=== PATIENT | female | born 1945 | race Caucasian/White ===

== ENCOUNTER → 2023-11-07 11:03 | Outpatient (REF) | payer MEDICARE, BC, SELFPAY | LOC: WDC 11:03 | PROVIDERS: ATTENDING PHYSICIAN Family Medicine | DX: Z12.31 Encounter for screening mammogram for malignant neoplasm of breast (principal) | CPT/HCPCS: 77063; 77067 ==

== ENCOUNTER → 2023-11-19 09:20 | Outpatient (REF) | payer MEDICARE, BC, SELFPAY | LOC: WDC 09:20 | PROVIDERS: ATTENDING PHYSICIAN Family Medicine | DX: R92.8 Other abnormal and inconclusive findings on diagnostic imaging of breast (principal) | CPT/HCPCS: 76642 ==

== ENCOUNTER → 2023-11-24 07:44 | Outpatient (REF) | payer MEDICARE, BC, SELFPAY ==
--- NOTE | 2023-11-24 14:48 | OID.BR.INTR ---
[facility] Breast Navigator - Initial
- -
Date of Contact: 11/24/23
Met with patient. Patient given written information on navigator services and support services available at [facility]. Will follow up as needed per protocol.
== END ==
LOC: WDC 07:44
PROVIDERS: ATTENDING PHYSICIAN Family Medicine
DX: N63.10 Unspecified lump in the right breast, unspecified quadrant (principal); N63.11 Unspecified lump in the right breast, upper outer quadrant
CPT/HCPCS: 88305; 19083; 77065; A4648

== ENCOUNTER → 2024-04-03 08:20 | Outpatient (REF) | payer MEDICARE, BC, SELFPAY ==
[2024-04-03 10:23] LABS: % Basophils 0.6 % (0-2); % Eosinophils 3.5 % (0-6); % Immature Granulocytes 0.3 % (0-0.5); % Lymphocytes 20.6 % (20.5-51.1); % Monocytes 7.9 % (1.7-9.3); % Neutrophils 67.1 % (42.2-75.2); Absolute Eosinophils 0.3 10^3/uL (0-0.7); Absolute Lymphocytes 1.5 10^3/uL (1.2-3.4); Absolute Monocytes 0.6 10^3/uL (0.1-0.6); Absolute Neutrophils 4.8 10^3/uL (1.4-6.5); Hematocrit 40.9 % (37.0-47.0); Hemoglobin 13.6 g/dL (12.0-16.0); Mean Corp Hgb Conc. 33.3 g/dL (33.0-37.0); Mean Corpuscular Hgb 30.8 pg (27.0-31.0); Mean Corpuscular Volume 92.5 fL (81.0-99.0); Mean Platelet Volume 10.1 fL (7.4-10.4); Nucleated Red Blood Cells % 0 %; Platelet Count 322 10^3/uL (130-400); Red Blood Cell Count 4.42 10^6/uL (4.20-5.40); White Blood Cell Count 7.1 10^3/uL (4.8-10.8)
[2024-04-03 10:48] LABS: ALT (SGPT) < 10 U/L (0-35); AST (SGOT) 19 U/L (14-36); Albumin 4.5 g/dl (3.5-5.0); Alkaline Phosphatase 78 U/L (38-126); Blood Urea Nitrogen 13 mg/dl (7-17); Calcium 9.8 mg/dl (8.4-10.2); Carbon Dioxide 23 mmol/L (22-30); Chloride 105 mmol/L (98-107); Glucose 115 mg/dl (70-99); HDL Cholesterol 73 mg/dl; LDL Cholesterol, Calculated 63 mg/dl; Potassium 4.4 mmol/L (3.5-5.1); Sodium 139 mmol/L (135-145); Total Bilirubin 0.6 mg/dl (0.2-1.3); Total Cholesterol 163 mg/dl (50-199); Total Protein 7.1 g/dl (6.3-8.2); Triglyceride 135 mg/dl (10-149); Very Low Density Lipoprotein 27 mg/dl (0-30); eGFR > 60.00
[2024-04-03 11:03] LABS: Microalbumin, Random Urine 1.2 mg/dl (0.6-1.7); Microalbumin/creatinine Ratio 4.5 mg/g
[2024-04-03 11:18] LABS: TSH 2.06 uIU/ml (0.47-4.68)
[2024-04-03 15:05] LABS: Glycohemoglobin (HgbA1c) 6.9 % (4.0-5.6)
== END ==
LOC: REG 08:20
PROVIDERS: ATTENDING PHYSICIAN Family Medicine
DX: E11.9 Type 2 diabetes mellitus without complications (principal); I10 Essential (primary) hypertension; E78.2 Mixed hyperlipidemia
CPT/HCPCS: 36415; 80053; 80061; 82043; 82570; 83036; 84443; 85025

== ENCOUNTER 2024-04-08 07:25 | Inpatient (IN) | payer MEDICARE, BC, SELFPAY ==
[2024-04-07] VITALS (9 sets, daily range): BP systolic 110–166; BP diastolic 60–115; BMI 22.1
[2024-04-07 09:50] LABS: Glucose - Point of Care 139 mg/dl (70-99)
--- NOTE | 2024-04-07 09:54 | ED.CVA ---
History of Present Illness
General
Chief Complaint: CVA/TIA Symptoms
Source: patient
Exam Limitations: none
Time Seen by Provider: 04/07/24 09:44
Onset of Stroke Symptoms
Onset of symptoms known: No
Time pt last seen normal is known: Yes
Date last time pt seen normal: 04/06/24
History of Present Illness
History of Present Illness:
See MDM
Past History
Past History
ED Past Medical History: None
ED Past Surgical History: None
Social History
Tobacco: Non-smoker
Phy Exam
Physical Exam
Physical Exam:
See MDM
NIH Stroke Score
Level of Consciousness: 0 - Alert
LOC questions: 0-Answers both correctly
LOC Commands: 0-Performs both correctly
Best Gaze: 0-Normal
Visual Stephens: 0=Normal, no visual loss
Facial palsy: 0=Normal, symmetrical
Motor - Right Arm: 0=No drift 10 seconds
Motor - Left Arm: 0=No drift 10 seconds
Motor - Right Le-No drift 5 seconds
Motor - Left Le-No drift 5 seconds
Limb Ataxia: 0-Absent
Sensation: 0-Normal
Best Language: 1-Mild aphasia
Dysarthria: 0-Normal
Extinction and Inattention: 0-No abnormality
Total Score:: 1
Course
Orders/Labs/Results
Orders:
Orders
04/07/24 09:50
Electrocardiogram (*1) Urgent
Reason for Study: TIA/Stroke
EKG- Treatment ONCE
04/07/24 09:53
CT Head & Neck Angio W/wo IV Urgent
Comment:
Reason For Exam: mild aphasia. Last normal 12 hr ago
NEUROLOGY CONSULT Urgent
Consulting Provider: Deni Ragsdale
Was physician already notified: Yes
Cardiac Monitoring- Treatment ONCE
EKG- Treatment ONCE
04/07/24 09:59
Complete Blood Count/With Diff Urgent
Comprehensive Metabolic Panel Urgent
PTT Urgent
Prothrombin Time Urgent
Troponin I Urgent
04/07/24 11:35
Aspirin Chewable [Low Strength Aspirin] 324 mg PO NOW STA
Clopidogrel Bisulfate [Plavix] 300 mg PO NOW STA
Abnormal Lab Results
04/07/24 04/07/24
09:49 09:59
Glucose 152 H mg/dl
(70-99)
POC Glucose 139 H mg/dl
(70-99)
04/07/24 09:59
04/07/24 09:59
Vital Signs
Initial and Last Documented VS:
Initial Vital Signs
Temp Pulse Resp BP Pulse Ox
97.6 F 84 18 166/115 96
04/07/24 09:40 04/07/24 09:40 04/07/24 09:40 04/07/24 09:40 04/07/24 09:40
Last Documented Vital Signs
Temp Pulse Resp BP Pulse Ox
97.6 F 63 13 143/77 95
04/07/24 09:40 04/07/24 11:00 04/07/24 11:00 04/07/24 11:00 04/07/24 11:00
MDM/Problems Addressed
Differential Diagnosis Includes:
HPI and MDM Narrative:
78-year-old female presenting for evaluation for possible stroke. Patient had a routine follow-up with her primary care doctor today and she was noted to be mildly aphasic. She was sent in for evaluation. Patient has had a stroke in the past.
Patient woke up around 6 AM. There is no one else in the house to talk to so she was not conversing. She saw a neighbor at 6:30 AM. When she started talking, she noted that she had mild word finding issues. The last time she was normal was 6:30
PM last night when she was talking to her sister. It is not certain when her symptoms actually started. Regardless, patient has an NIH score of 1 for mild aphasia. She is not a TNK candidate. Neurology made aware and will obtain CT and CT
angiogram
Physical exam
General: Well appearing and non-toxic
HEENT: protecting airway
Neck: appears supple
CV: No evidence of cyanosis. Regular rate and rhythm
Resp: No accessory muscle use. Lungs clear
Abd: Non-distended
Extremities: No deformities
Neuro: alert. Very mild word finding issues. No other focal deficits noted
Psych: Normal affect
Skin: Intact
Problems Addressed including Acute and Chronic Conditions affecting care:
1. Stroke like symptoms
Acuity: acute
Prognosis: stable
Details: Will obtain CT angiogram. Neurology will eval. Given the uncertain timing with low NIH stroke scale, she is not a TNK candidate
Updates
CT angio negative for significant blockages. Will give aspirin Plavix and admit
Differential Diagnosis (but not limited to): Stroke, intracranial hemorrhage
Testing considered: CT perfusion
Drug therapy (if applicable): OTC meds, please see d/c instruction regarding Rx drugs
Amount and/or Complexity of Data Reviewed
Clinical info obtained from: Patient
External data reviewed: N/A
Labs I independently reviewed (but not limited to): Electrolytes within normal limits
Radiology: The CT scan was personally and independently reviewed. In addition, official CT report reviewed.
Pulse Ox: not hypoxic
EKG independently reviewed: Sinus rhythm, normal axis, no STEMI
[employer]: Sinus rhythm
Critical Care: N/A
Risk of Complication:
Social Determinants of health: Good social support
Discussed with other providers: Neurology, hospitalist
Escalation of Care includes Admit/Obs: Given the aphasia and strokelike symptoms, will admit for further
Occasional wrong word or 'sound a like' substitutions may have occurred due to the inherent limitations of voice recognition software. Read the chart carefully and recognize, using context, where substitutions have occurred.
*Critical Care Note
Total Time (30-74mins, 75-104mins- exclusive of procedures): Not Applicable
ED Attending Note
-
Portions of this chart may have been created with voice recognition software.� Occasional wrong word or��sound alike� substitutions may have occurred due to the inherent limitations of voice recognition software.
Discharge Plan
Departure
Patient Disposition: Admit
Date of Disposition: 04/07/24
Time of Disposition: 11:40
Admit to: Telemetry
Presentation/result/management discussed w/ accepting MD/DO: Hospitalist
Discharge Problem:
Aphasia
Referrals:
Macario Dejesus MD [Family Provider] -
Interventions
Interventions:
*Risk Screen - Suicide Last Done: 04/07/24 09:54
*Neglect/Abuse Screening Last Done: 04/07/24 09:54
ED- Fall Risk Assessment Last Done: 04/07/24 09:55
ED- Pulmonary Assessment Last Done: 04/07/24 09:57
ED- Neurological Assessment Last Done: 04/07/24 09:55
ED- Cardiac Assessment Last Done: 04/07/24 09:58
Discharge Date and Time
Print Language: DANISH
[2024-04-07 10:18] LABS: % Basophils 0.6 % (0-2); % Eosinophils 3.6 % (0-6); % Immature Granulocytes 0.1 % (0-0.5); % Lymphocytes 23.2 % (20.5-51.1); % Monocytes 9.2 % (1.7-9.3); % Neutrophils 63.3 % (42.2-75.2); Absolute Eosinophils 0.3 10^3/uL (0-0.7); Absolute Lymphocytes 1.6 10^3/uL (1.2-3.4); Absolute Monocytes 0.6 10^3/uL (0.1-0.6); Absolute Neutrophils 4.4 10^3/uL (1.4-6.5); Hematocrit 39.5 % (37.0-47.0); Hemoglobin 13.4 g/dL (12.0-16.0); Mean Corp Hgb Conc. 33.9 g/dL (33.0-37.0); Mean Corpuscular Hgb 30.5 pg (27.0-31.0); Mean Corpuscular Volume 89.8 fL (81.0-99.0); Mean Platelet Volume 9.9 fL (7.4-10.4); Nucleated Red Blood Cells % 0 %; Platelet Count 340 10^3/uL (130-400); Red Cell Dist. Width 13.1 % (11.5-14.5)
[2024-04-07 10:26] LABS: ALT (SGPT) 11 U/L (0-35); AST (SGOT) 18 U/L (14-36); Albumin 4.8 g/dl (3.5-5.0); Alkaline Phosphatase 88 U/L (38-126); Blood Urea Nitrogen 13 mg/dl (7-17); Calcium 10.1 mg/dl (8.4-10.2); Carbon Dioxide 23 mmol/L (22-30); Chloride 103 mmol/L (98-107); Glucose 152 mg/dl (70-99); Potassium 4.4 mmol/L (3.5-5.1); Sodium 139 mmol/L (135-145); Total Bilirubin 0.6 mg/dl (0.2-1.3); Total Protein 7.6 g/dl (6.3-8.2); eGFR > 60.00
[2024-04-07 10:36] LABS: INR 0.92; PT 12.4 Sec (11.4-14.6)
[2024-04-07 10:37] LABS: APTT 27.3 Sec (23.4-35.0)
[2024-04-07 10:39] LABS: Troponin I < 0.012 ng/ml
[2024-04-07] MEDS: LOW STRENGTH ASPIRIN 324 MG PO (11:51)
[2024-04-07] MEDS: PLAVIX 300 MG PO (11:52)
--- NOTE | 2024-04-07 11:59 | CON.NEURO4 ---
Consultation - Neurology 4
-
CONSULTING PHYSICIAN: Angy Ragsdale
REFERRING PHYSICIAN: ER
DICTATED BY: Angy Ragsdale
DATE/TIME OF REQUEST: 04/07/24
DATE/TIME OF CONSULTATION: 04/07/24
Reason for Consultation: Aphasia concern for stroke
History of Present Illness:
Patient is an 78-year-old woman with a past no history of previous ischemic stroke without any residual deficits, breast cancer, diabetes, hyperlipidemia presented to hospital with abnormal speech noted by herself and a neighbor this morning around
6:30 in the morning. Patient was last known at her normal yesterday evening with normal speech at that time when she woke up she was not talking to anybody but later on in the morning her neighbor noticed that she was speaking abnormally.
Patient reports that her speech is not completely normal but seems to be improving. No recent head or neck trauma no recent unusual headaches or headache currently. No weakness or paresthesia of the limbs or walking difficulties or other deficits
that she notices at this time.
Patient reports a history of a stroke many years ago that was ischemic, though she is not on aspirin or antiplatelet therapy currently, denies any recent serious bleeding issues or serious bleed events in her life. Her outpatient chart lists a
vertebrobasilar ischemic stroke in the past without residual deficit.
Past Medical History: Previous history ischemic stroke many years ago no residual deficit, diabetes, Stage 1 Left Breast cancer s/p lumpectomy and chemotherapy, nephrolithiasis, osteoporosis,
Surgical History: Breast lumpectomy, lymph node biopsy, port placement
Family History:Non-contributory
Social History: Used to work as [email or web address], retired, lives on her own, has a puppy that is ornery, no tobacco or alcohol
Allergies: Clarithromycin
Review of Symptoms:
Patient denies any fever, headache, chest pain, shortness of breath, GI or symptoms.
Physical Exam:
Well-appearing elderly woman appears her stated age no signs of head or neck trauma eyes are clear oropharynx is clear heart rate regular breathing unlabored neck supple with no masses, abdomen soft nontender no lower extremity edema rash or joint
deformity seen
Neurologic Examination:
The patient is awake, alert and oriented x 3. She is able to follow commands and answer questions appropriately. Mild expressive aphasia is present with some occasional nonfluent speach in her spontaneous speech, can name simple objects well,
obeys complex and multi step commands crossing the midline. On cranial nerve assessment, pupils are 3 mm bilateral, round and reactive to light and accommodation. Visual bourgeois are full. Extraocular movements are intact. Facial sensations are
intact and bilaterally symmetrical, there is no facial asymmetry. Hearing is intact bilaterally to normal conversation volume. Tongue palate and uvula are midline. Sternocleidomastoid strengths are full bilaterally. Motor strengths are 5/5
bilateral upper and lower extremities on medical research [place] scale. There is no drift or involuntary movement noted. Deep tendon reflexes are 2+ bilateral upper and lower extremities and Babinski is absent bilaterally. Sensations of pain,
touch, temperature and vibration are intact and bilaterally symmetrical. There was no extinction noted on double simultaneous stimulation. Coordination is intact by finger to nose bilaterally.
Neuro Imaging: CT head non contrast no hemorrhage or acute infarcts seen, right frontal lobe hypodensity likely a chronic ischemic stroke
CTA head and neck no intracranial occlusions, no significant carotid stenosis, bilateral mild plaque in carotid bulbs
Impressions
1. Likely a new minor ischemic stroke manifesting with aphasia, likely involving the left hemisphere language areas, not a candidate for thrombolytic or IAT.
2. History of a previous ischemic stroke though not on chronic antiplatelet therapy
3. Diabetes non insulin dependent last A1c around 7.2
4. Hyperlipidemia
5. Treated breast cancer which was stage 1
Patient has the following risk factors for their symptoms: Age, hyperlipidemia, diabetes
IV Tenecteplase/IAT candidacy: Outside time window for TNK based on last known normal yesterday evening, no LVO not an IAT candidate
Recommendations:
1. Loaded with aspirin and clopidogrel and continue DAPT therapy tentatively for 3-weeks
2. Permissive hypertension goal less than 220/120 until tomorrow morning at 7 AM, goal normotension thereafter
3. Speech physical Occupational Therapy evaluation
4. NIH and neurologic checks
5. Monitor on cardiac telemetry
6. Check MRI brain without contrast
7. Check lipid panel hemoglobin A1c
8. Can place on atorvastatin 20 mg, depending on LDL levels may just home simvastatin upon discharge, LDL goal pursue less than 70
Will follow
Discussed patient care with: Patient, ER
--- NOTE | 2024-04-07 13:03 | HPS.HSE ---
Family Physician
-
Family Physician: Macario Dejesus
Chief Complaint
-
Aphasia
History of Present Illness
78-year-old female with past medical history of diabetes mellitus, hypertension, hyperlipidemia, CVA, osteoarthritis, urticaria, nephrolithiasis came to the hospital with aphasia that started around 6:30 AM. Patient also had a routine appointment
with a primary care provider who noted her to have aphasia along with facial droop which prompted him to send her to the ED for evaluation. Patient was last known at her normal yesterday evening. Currently patient denies any chest pain, shortness
of breath he denies any nausea, vomiting, diarrhea, constipation.
Medical History
Past Medical History
Past Medical History: Reports CVA, HTN, Hypercholesterolemia and NIDDM
Past Surgical History: Reports None
Social History
Tobacco: Non-smoker
Family History
Family History: Not pertinent
Allergies / Home Medications
Allergies reflects when Allergies were last updated in [facility] [facility].
Home Medications with original date entered in [employer] [facility]
Allergy/Medication List:
Allergies
Allergy/AdvReac Type Severity Reaction Status Date / Time
clarithromycin [From Biaxin] Allergy fainting Verified 04/07/24 11:56
Home Medications
cholecalciferol (vitamin D3) 25 mcg (1,000 unit) tablet (Vitamin D3) 25 mcg PO QPM Supplement 04/07/24
metformin 500 mg tablet 500 mg PO BID AT 0800,1700 Diabetes 04/07/24
pioglitazone 30 mg tablet 30 mg PO QPM Diabetes 04/07/24
simvastatin 10 mg tablet 10 mg PO HS High Cholesterol 04/07/24
sitagliptin phosphate 100 mg tablet (Januvia) 100 mg PO QPM Diabetes 04/07/24
Review of Systems
-
History Source: Patient
A 12 point ROS was completed and negative except as noted: Yes
Physical Exam
Vital Signs
Vital Signs
Temp Pulse Resp BP Pulse Ox
97.6 F 68 19 143/77 96
04/07/24 09:40 04/07/24 12:15 04/07/24 12:15 04/07/24 11:00 04/07/24 12:15
Physical Exam
General: No Apparent Distress and Comfortable
HEENT: Anicteric and Moist mucous membranes
Respiratory: Clear; No Wheezes
Cardiac: S1/S2 and Regular Rhythm
Breast: Deferred by me
GI: Soft, Non Tender and Non Distended
Rectal: Deferred by Provider
Genito-urinary: No Briggs
Musculoskeletal: No Edema
Neuro: Awake, Alert, Oriented, AO x 3 and Facial Droop
Psych: Calm and Intact Judgment/Insight
Laboratory Results
-
04/07/24 09:59
04/07/24 09:59
Laboratory Results
PT 12.4 Sec (11.4-14.6) 04/07/24 09:59
INR 0.92 04/07/24 09:59
APTT 27.3 Sec (23.4-35.0) 04/07/24 09:59
Total Bilirubin 0.6 mg/dl (0.2-1.3) 04/07/24 09:59
AST 18 U/L (14-36) 04/07/24 09:59
ALT 11 U/L (0-35) 04/07/24 09:59
Alkaline Phosphatase 88 U/L (38-126) 04/07/24 09:59
Troponin I < 0.012 ng/ml 04/07/24 09:59
Data Reviewed
-
Lab Data: Labs Reviewed by me and Discussed with Patient
Impression/Plan
-
Facial droop and aphasia, likely 2/2 TIA/CVA
History of previous stroke, however not on any aspirin
Aspirin Plavix given in the ED, continue with baby aspirin and Plavix starting tomorrow
Continue statin
Lipid profile, A1c
PT/OT
Speech evaluation, PT/OT
CTA without acute findings
Check MRI brain
Continue with neurochecks
permissive hypertension goal less than 220/120 until tomorrow morning at 7 AM, goal normotension thereafter
Monitor on telemetry
History of diabetes mellitus
Check A1c; Accu-Cheks
Insulin sliding scale
Hold metformin, continue with pioglitazone, Januvia
Hyperlipidemia
History of nephrolithiasis
DVT prophylaxis
Lovenox
Full code
I spent a total of 76 minutes with the patient or on the floor. More than 50% of this time involved counseling and coordination of care.
[2024-04-07 16:43] LABS: Glucose - Point of Care 118 mg/dl (70-99)
[2024-04-07] MEDS: VITAMIN D3 (cholecalciferol) 25 MCG PO (18:29)
[2024-04-07] MEDS: JANUVIA 100 MG PO (18:29)
[2024-04-07] MEDS: LOVENOX 40 MG SC (18:29)
[2024-04-07] MEDS: LIPITOR 20 MG PO (18:29)
[2024-04-07] MEDS: ACTOS 30 MG PO (18:29)
[2024-04-07 21:27] LABS: Glucose - Point of Care 122 mg/dl (70-99)
[2024-04-08 04:33] VITALS: BP 108/76
[2024-04-08 06:00] VITALS: BMI 22.3
[2024-04-08 07:58] LABS: % Basophils 0.8 % (0-2); % Eosinophils 4.8 % (0-6); % Immature Granulocytes 0.2 % (0-0.5); % Lymphocytes 23.9 % (20.5-51.1); % Neutrophils 60.3 % (42.2-75.2); Absolute Eosinophils 0.2 10^3/uL (0-0.7); Absolute Lymphocytes 1.2 10^3/uL (1.2-3.4); Absolute Monocytes 0.5 10^3/uL (0.1-0.6); Hematocrit 39.9 % (37.0-47.0); Hemoglobin 13.5 g/dL (12.0-16.0); Mean Corp Hgb Conc. 33.8 g/dL (33.0-37.0); Mean Corpuscular Hgb 30.6 pg (27.0-31.0); Mean Corpuscular Volume 90.5 fL (81.0-99.0); Mean Platelet Volume 9.9 fL (7.4-10.4); Nucleated Red Blood Cells % 0 %; Platelet Count 285 10^3/uL (130-400); Red Blood Cell Count 4.41 10^6/uL (4.20-5.40); Red Cell Dist. Width 12.9 % (11.5-14.5)
--- NOTE | 2024-04-08 08:07 | W.PN.NEURO.1 ---
Addendum entered and electronically signed by Deni Ragsdale MD 04/08/24 13:51:
I saw and evaluated patient I reviewed the note by Julianne Ontiveros agree with the findings the following comments:
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
primary care physician.
She relates that her speech is much improved and nearly normal at this point, no headache, no weakness of the limbs no dysphagia.
She denies any instances of severe bleeding in the past.
Neurologic examination shows some very mild expressive language difficulty
MRI brain with very small areas of cortical ischemic stroke in the left frontal lobe no significant stenosis on CTA of the head and neck in the intracranial carotid arteries
Assessment: Embolic ischemic stroke to the left MCA territory, atherosclerotic versus cardioembolic etiology. Transthoracic echocardiogram with normal left atrial index however cardioembolic stroke would remain on differential diagnosis. Should
make a very good recovery has not already improving aphasia
Recommendations:
-Aspirin clopidogrel DAPT therapy for total of 21 days and then aspirin 81 mg daily thereafter
-Increase atorvastatin dose to 80 mg to
-Would pursue outpatient short-term cardiac monitoring
-Neurology follow-up 4 to 6 weeks outpatient
-Speech therapy as outpatient
-No barriers to discharge from my stamp
Original Note:
Documented by User: Julianne Brothers NP 04/08/24 13:15
Today's Communication / Plan
-
.
Neuro Assessment/Plan
Assessment
Patient is an 78-year-old woman with a PMH of previous ischemic stroke without any residual deficits, breast cancer, diabetes, hyperlipidemia presented to hospital with abnormal speech noted by herself and a neighbor on 04/07/24 at 0630. She reports
being at her baseline when she went to bed on 04/06/24. She was not a candidate for TNK/IAT due to being outside of the time window and no LVO. She was not currently taking any antiplatelet medications for an unclear reason despite her history of
ischemic stroke.
-CTA head/neck 04/07/24: No large vessel occlusions or dissections appreciated. Minimal calcified plaque within BOTH carotid bulbs and proximal internal carotid arteries. No significant luminal stenosis. Nonspecific 10 mm hypodense focus of the
RIGHT frontal lobe, age-indeterminate. No significant mass effect or edema associated with this lesion.
-MRI brain 04/07/24: There is subtle thin cortical region of increased diffusion-weighted signal and possible decreased ADC signal involving the left posterior and inferior frontal lobe, as described. This is suspicious for a small region of acute to
subacute origin. Multiple regions of old infarction as described. Mild to moderate diffuse atrophy in this 78-year-old. Mild T2 and FLAIR white matter hyperintensities, predominantly periventricular.
I. Left frontal lobe ischemic infarct producing speech change; unclear etiology, likely small vessel disease but cannot entirely exclude cardiac source.
II. History of a previous ischemic stroke though not on chronic antiplatelet therapy
III. Diabetes non insulin dependent
IV. Hyperlipidemia
V. Treated breast cancer which was stage 1
Plan
-Continue DAPT with aspirin 81mg and Plavix 75mg daily for 21 days. After 21 days, discontinue Plavix and continue aspirin 81mg daily only, indefinitely.
-Goal normotension.
-Monitor on telemetry. Patient should have outpatient cardiac monitoring for 1-2 weeks.
-LDL goal <70. LDL is 78. Increase atorvastatin from 20mg to 40mg daily for high dose statin therapy.
-Goal normoglycemia, hbA1c is 6.9.
-ST evaluations.
-NIHSS and neurological checks per unit guidelines.
-Patient provided with a stroke education packet.
-DVT prophylaxis.
-Patient should follow-up with Neurology as an outpatient in 4-6 weeks, may see the FAMILY SUPPORT WORKER or one of the physicians.
Subjective/Objective
Subjective Data
Date of Service: April 08, 2024
No acute events overnight. Patient reports that her speech is improved today, almost back to baseline but not quite. She denies any headache, dizziness, vision changes, swallowing difficulty, numbness, weakness, chest pain, palpitations, and
shortness of breath.
Objective Data
Vital Signs
Temp Pulse Resp BP Pulse Ox
98.1 F 69 17 108/76 96
04/08/24 04:33 04/08/24 04:33 04/08/24 04:33 04/08/24 04:33 04/08/24 04:33
Lab Results
04/08/24 07:19
PT 12.4 Sec (11.4-14.6) 04/07/24 09:59
INR 0.92 04/07/24 09:59
APTT 27.3 Sec (23.4-35.0) 04/07/24 09:59
Sodium 139 mmol/L (135-145) 04/07/24 09:59
Potassium 4.4 mmol/L (3.5-5.1) 04/07/24 09:59
BUN 13 mg/dl (7-17) 04/07/24 09:59
Glucose 152 mg/dl (70-99) H 04/07/24 09:59
Calcium 10.1 mg/dl (8.4-10.2) 04/07/24 09:59
Patient Allergies
clarithromycin [From Biaxin] Allergy (Verified 04/07/24 11:56)
fainting
LDL Level: Statin dose adjusted
Review of Systems
-
History Source: Patient
EENT: Negative Blurry Vision, Decreased Vision or Swallowing Difficulty
Respiratory: Negative Cough or Trouble Breathing
Cardiac: Negative Chest Pain
Abdomen/GI: Negative Nausea
Neuro: Speech Problem; Negative Dizzy, Headache, Weakness, Numbness, Ataxia or Tremors
Physical Exam
-
General: Well Developed, Well Nourished and No Apparent Distress
Eyes: No Ptosis and PERRLA
HEENT: Normocephalic and Atraumatic
Neck: Full Range of Motion
Respiratory: No Dyspnea
GI: Non-distended
Extremities: No Clubbing, No Cyanosis and No Edema
Psych: Unremarkable
Extended Neurological Exam
Mood & Affect: Mood Unremarkable and Affect Unremarkable
Attention Span & Concentration: Awake, Alert, Interactive and No Difficulty with 2 Step Request
Memory: Unremarkable (AAOx3) and Able to Recall
Tremor: Hand Tremor Absent and Head Tremor Absent
Involuntary Movement: None
Speech: Quality Unremarkable, Quantity Unremarkable and Mildly Reduced Output
Cranial Nerve II: Left Eye: Pupillary Reactivity Unremarkable, Pupillary Size Unremarkable and Visual Stephens Intact
Cranial Nerve II: Right Eye: Pupillary Reactivity Unremarkable, Pupillary Size Unremarkable and Visual Stephens Intact
Cranial Nerves III, IV, : Extraocular Movement: Extraocular Movement Full in all Directions
Cranial Nerve V: Facial Sensation: Intact to Light Touch
Cranial Nerve VII: Facial Symmetry: Normal Facial Symmetry
Cranial Nerve VIII: Hearing: Unremarkable Hearing to Normal Conversational Volume
Cranial Nerves IX, X: Palate Movement: Palate Elevation Symmetric
Cranial Nerve XI: Shoulder Shrug: Unremarkable
Cranial Nerve XII: Tongue Protusion: Midline
Muscle Strength, Overall: Full Throughout
Muscle Bulk & Tone: Bulk Unremarkable and Tone Unremarkable
Pronator Drift: No Drift in Upper Extremities and No Drift in Lower Extremities
Touch Sensation: Double Simultaneous Stimulation Unremarkable
Babinski Sign: Absent Bilaterally
Modified Trenton Score (MRS)
-
Modified Trenton Scale (mRS): No significant disability. Able to carry out usual activities.
Score: 1
Data Reviewed
-
CT-A: Report Reviewed and Image Reviewed
MRI Head: Report Reviewed and Image Reviewed
Echocardiogram: Report Reviewed
Labs: Report Reviewed
Lipid Profile: Report Reviewed
HgbA1C: Report Reviewed
Reviewed with: Physician and Patient
Medications
-
Active Medications
Generic Name Dose Route Start Last Admin
Trade Name Freq PRN Reason Stop Dose Admin
Acetaminophen 650 mg 04/07/24 13:06
Acetaminophen 650 Mg Rectal Suppository RECTAL 05/05/24 13:05
Q4HPRN PRN
HENRIQUEZ, mild pain, or temp >100.4F
Acetaminophen 650 mg 04/07/24 13:06
Acetaminophen 325 Mg Tablet PO 05/05/24 13:05
Q4HPRN PRN
HENRIQUEZ, mild pain, or temp >100.4F
Aspirin 81 mg 04/08/24 08:00 04/08/24 08:39
Aspirin 81 Mg Chewable Tablet PO 05/06/24 07:59 81 mg
DAILY CHARLES Administration
Atorvastatin Calcium 40 mg 04/08/24 18:00
Atorvastatin (Lipitor) 40 Mg Tablet PO 05/06/24 17:59
QPM CHARLES
Bisacodyl 10 mg 04/07/24 15:35
Bisacodyl 10 Mg Rectal Suppository RECTAL 05/05/24 15:34
[id number] PRN
constipation
Cholecalciferol 25 mcg 04/07/24 18:00 04/07/24 18:29
Cholecalciferol (Vitamin D3) 25 Mcg Tablet (1,000 Units) PO 05/05/24 17:59 25 mcg
QPM CHARLES Administration
Clopidogrel Bisulfate 75 mg 04/08/24 08:00 04/08/24 08:39
Clopidogrel 75 Mg Tablet PO 04/28/24 08:01 75 mg
DAILY CHARLES Administration
Dextrose 12.5 grams 04/07/24 13:02
Dextrose 50% (0.5 Grams/Ml) 50 Ml Syringe IV 05/05/24 13:01
[id number] PRN
hypoglycemia
Protocol
Enoxaparin Sodium 40 mg 04/07/24 18:00 04/07/24 18:29
Enoxaparin Sodium 40 Mg/0.4 Ml Syringe SC 05/05/24 17:59 40 mg
QPM CHARLES Administration
Glucagon 1 mg 04/07/24 13:02
Glucagon 1 Mg Vial IM 05/05/24 13:01
PRN PRN
hypoglycemia
Protocol
Hydralazine HCl 5 mg 04/07/24 13:12
Hydralazine 20 Mg/Ml Vial IV 05/05/24 13:11
Q6HPRN PRN
BP>220/120
Insulin Aspart 0 units 04/07/24 16:30 04/08/24 12:00
Insulin Aspart Low Resistance 300 Units/3 Ml Pen.Injctr SC 05/05/24 16:29 Not Given
AC CHARLES
Protocol
Pioglitazone HCl 30 mg 04/07/24 18:00 04/07/24 18:29
Pioglitazone Hcl 30 Mg Tablet PO 05/05/24 17:59 30 mg
QPM CHARLES Administration
Polyethylene Glycol 17 grams 04/07/24 15:35
Polyethylene Glycol Powder 17 Grams Packet PO 05/05/24 15:34
DAILYPRN PRN
constipation
Senna/Docusate Sodium 1 tablet 04/07/24 15:35
Docusate W/Senna (Renu-Colace) Tablet PO 05/05/24 15:34
BIDPRN PRN
constipation
Sitagliptin Phosphate 100 mg 04/07/24 18:00 04/07/24 18:29
Sitagliptin (Januvia) 100 Mg Tablet PO 05/05/24 17:59 100 mg
QPM CHARLES Administration
Sodium Chloride 0 flush 04/07/24 16:00
Sodium Chloride 0.9% (Flush) Syringe IV 05/05/24 15:59
PER PROTOCOL CHARLES
Home Medications
�Medication �Instructions �Recorded
cholecalciferol (vitamin D3) 25 25 mcg PO QPM Supplement 04/07/24
mcg (1,000 unit) tablet (Vitamin
D3)
metformin 500 mg tablet 500 mg PO BID AT 0800,1700 Diabetes 04/07/24
pioglitazone 30 mg tablet 30 mg PO QPM Diabetes 04/07/24
sitagliptin phosphate 100 mg 100 mg PO QPM Diabetes 04/07/24
tablet (Januvia)
aspirin 81 mg chewable tablet 81 mg PO DAILY #30 tabs 04/08/24
atorvastatin 20 mg tablet 20 mg PO QPM #30 tabs 04/08/24
clopidogrel 75 mg tablet 75 mg PO DAILY #20 tabs 04/08/24
NIH Stroke Score
Subsequent NIH Scale
Date of Subsequent NIH Scale: 04/08/24
Time of Subsequent NIH Scale: 10:00
NIH Stroke Score
Level of Consciousness: 0 - Alert
LOC Questions: 0-Answers both correctly
LOC Commands: 0-Performs both correctly
Best Horizontal Gaze: 0-Normal
Visual Stephens: 0=Normal, no visual loss
Facial Palsy: 0=Normal, symmetrical
Motor - Right Arm: 0=No drift 10 seconds
Motor - Left Arm: 0=No drift 10 seconds
Motor - Right Le-No drift 5 seconds
Motor - Left Le-No drift 5 seconds
Limb Ataxia: 0-Absent
Sensation: 0-Normal
Best Language: 1-Mild aphasia
Dysarthria: 0-Normal
Extinction and Inattention: 0-No abnormality
Total Score:: 1
Modified Trenton (mRS) Score
Modified Jony Scale (mRS): No significant disability. Able to carry out usual activities.
Score: 1
Alteplase Contraindication
Inclusion and Exclusion criteria reviewed: Yes
Reasons for NON-Tx with Thrombolytics ABSOLUTE Exclusions: Greater than 4.5 hrs from onset of sxs
IAT Contraindications: NIHSS < 6

Documented by User: Deni Ragsdale MD 04/08/24 13:47
Modified Trenton Score (MRS)
-
Score: 1
NIH Stroke Score
NIH Stroke Score
Total Score:: 1
Modified [place] (mRS) Score
Score: 1
[2024-04-08 08:11] VITALS: BP 133/77
[2024-04-08 08:19] LABS: Glucose - Point of Care 156 mg/dl (70-99)
[2024-04-08 08:23] LABS: Blood Urea Nitrogen 11 mg/dl (7-17); Calcium 9.9 mg/dl (8.4-10.2); Carbon Dioxide 25 mmol/L (22-30); Chloride 106 mmol/L (98-107); Estimated Creatinine Clearance 55 ml/min; Glucose 133 mg/dl (70-99); HDL Cholesterol 64 mg/dl; LDL Cholesterol, Calculated 78 mg/dl; Potassium 4.4 mmol/L (3.5-5.1); Sodium 138 mmol/L (135-145); Total Cholesterol 165 mg/dl (50-199); Triglyceride 116 mg/dl (10-149); Very Low Density Lipoprotein 23 mg/dl (0-30); eGFR > 60.00
[2024-04-08] MEDS: LOW STRENGTH ASPIRIN 81 MG PO (08:39)
[2024-04-08] MEDS: PLAVIX 75 MG PO (08:39)
[2024-04-08 09:10] VITALS: BP 118/74; BP 150/83; PULSE 84; O2SAT 95
--- NOTE | 2024-04-08 09:15 | PTOTSP ---
Speech Language Pathology
Pt seen for speech/language evaluations. Pt with mild dysarthria. Language evaluated via the Quick Aphasia Battery (QAB), form 1. Pt with overall score of 8.08, indicative of overall mild deficits.
Pt would benefit from outpatient speech therapy at discharge to address expressive/receptive aphasia and suspected alexia. Brochure provided. DEVELOPMENT INTERN to continue to follow.
[2024-04-08 09:52] VITALS: BP 118/74; PULSE 84; O2SAT 95
--- NOTE | 2024-04-08 10:04 | PTOTSP ---
PATIENT ABLE TO FUNCTION INDEPENDENTLY ON LEVEL SURFACES WELL A CURB ELEVATION. PATIENT REQUIRING NO FURTHER SKILLED P.T. AT THIS TIME. WILL DISCHARGE FROM P.T. SERVICES.
[2024-04-08 11:30] VITALS: BP 137/63
[2024-04-08 11:51] LABS: Glucose - Point of Care 130 mg/dl (70-99)
--- NOTE | 2024-04-08 11:53 | W.PN.HOSP.TC ---
Today's Communication/Plan
-
monitor vitals
see plan
spoke with neurology, ok to dc
will need outpatient cardiac monitoring; can be set up with pcp or will provide cardiology info
Continue with dual antiplatelet for 3 weeks and then aspirin alone
time of discharge 38 minutes
Assessment / Plan
Assessment / Plan
General: No Apparent Distress and Comfortable
HEENT: Anicteric and Moist mucous membranes
Respiratory: Clear; No Wheezes
Cardiac: S1/S2 and Regular Rhythm
GI: Soft, Non Tender and Non Distended
Genito-urinary: No Briggs
Musculoskeletal: No Edema
Neuro: Awake, Alert, Oriented, AO x 3 and Facial Droop
Psych: Calm and Intact Judgment/Insight
Facial droop and aphasia, likely 2/2 Acute CVA
History of previous stroke, however not on any aspirin
Aspirin Plavix given in the ED, continue with baby aspirin and Plavix; cw DAPT x 3 weeks and then asa alone
Continue statin
LDL 78, A1c 6.9
Did well with PT, need outpatient speech therapy
neurology following
CTA without acute findings
MRI brain noted acute CVA
Continue with neurochecks
goal normotension
Monitor on telemetry
History of diabetes mellitus
A1c 6.9; Accu-Cheks
Insulin sliding scale
resume metformin, continue with pioglitazone, Januvia
Hyperlipidemia
History of nephrolithiasis
DVT prophylaxis
Lovenox
Full code
Anticipated Discharge: Today
Subjective/Interval History
-
Date of Service: April 08, 2024
denies pain
Objective Data
-
Labs:
Laboratory Results
04/08/24
07:19
WBC 5.0
Hgb 13.5
Hct 39.9
Plt Count 285
Sodium 138
Potassium 4.4
Chloride 106
Carbon Dioxide 25
BUN 11
Creatinine 0.7
Glucose 133 H
Calcium 9.9
Vital Signs:
Vital Signs
Temp Pulse Resp BP Pulse Ox
97.9 F 65 18 137/63 94
04/08/24 11:30 04/08/24 11:30 04/08/24 11:30 04/08/24 11:30 04/08/24 11:30
I&O
04/07/24 04/08/24 04/09/24
06:59 06:59 06:59
Intake Total 480 / 480
Balance 480 / 480
--- NOTE | 2024-04-08 12:20 | W.DCSUMMARY ---
Discharge Summary
Discharge Data
Date of Admission: 04/08/24
Date of Discharge: 04/08/24
-
Pending Results: No
Hospital Course
78-year-old female with past medical history of diabetes mellitus, hyperlipidemia, nephro lithiasis, previous stroke came to the hospital with facial droop and aphasia. MRI was consistent with acute stroke. Patient was seen by neurology and was
started on dual antiplatelet therapy with aspirin and Plavix. Patient instructed to continue aspirin and Plavix for 3 weeks and then continue aspirin alone indefinitely. On discharge patient was also instructed to follow-up with primary care
provider or cardiology for outpatient cardiac monitoring. Once patient symptoms continue to improve, she was then discharged home with instructions to follow-up with all her physicians outpatient.
Discharge Plan
-
Patient Disposition: Home (Routine Discharge)
Discharge Diagnosis/Procedures: Acute CVA
Diabetes mellitus
Diet: As tolerated
Activity: As tolerated
Driving Restrictions: As prior to admission
Bathing Restrictions: None
Activity Restrictions/Additional Instructions:
Please follow-up with your primary care provider or cardiology for outpatient cardiac monitoring
This continue with aspirin and Plavix for 20 more days and then discontinue Plavix and continue aspirin indefinitely
Referrals:
Deni Ragsdale MD [Active] - in three to four weeks
Grady Ibrahim DO [Active] -
Macario Dejesus MD [Family Provider] - in less than 1 week
Prescriptions:
New
aspirin 81 mg Tablet,Chewable
81 mg PO DAILY Qty: 30 0RF
clopidogrel 75 mg Tablet
75 mg PO DAILY Qty: 20 0RF
atorvastatin 40 mg Tablet
40 mg PO QPM Qty: 30 0RF
Continued
metformin 500 mg tablet
500 mg PO BID AT 0800,1700
pioglitazone 30 mg tablet
30 mg PO QPM
Januvia 100 mg tablet
100 mg PO QPM
cholecalciferol (vitamin D3) [Vitamin D3] 25 mcg (1,000 unit) Tablet
25 mcg PO QPM
Discontinued
simvastatin 10 mg tablet
10 mg PO HS
Discharge Orders:
Discharge Patient (As Directed); Ordered 04/08/24
Ordered By: Alexis Dietrich
Discharge Date and Time
Discharge Date/Time: 04/08/24 15:32
Print Language: FRENCH
--- NOTE | 2024-04-08 13:51 | CM ---
Mary Grace was admitted to with concern for tia/cva.
Mary Grace lives alone in a 1st floor condo with 1 entry step and will return home at discharge. She will follow up for therapy as an OP.
Outpatient speech and occupational therapy is recommended and pt has a brochure with contact information.
Plan: Mary Grace will return home with outpatient therapy. No CM needs identified at this time.
PCP: Macario Dejesus
Pharmacy: [facility]
== END 2024-04-08 15:32 | disposition home or self-care (01) | DRG 66 ==
LOC: 4 EAST ACU 07:25
PROVIDERS: ADMITTING PHYSICIAN Internal Medicine; CONSULT PHYSICIAN Student in an Organized Health Care Education/Training Program; EMERGENCY PHYSICIAN Student in an Organized Health Care Education/Training Program; FAMILY PHYSICIAN Family Medicine
DX: I63.412 Cerebral infarction due to embolism of left middle cerebral artery (principal); R47.01 Aphasia; E11.9 Type 2 diabetes mellitus without complications; I10 Essential (primary) hypertension; R29.810 Facial weakness; E78.5 Hyperlipidemia, unspecified; Z79.84 Long term (current) use of oral hypoglycemic drugs; Z79.899 Other long term (current) drug therapy; Z87.442 Personal history of urinary calculi; Z86.73 Personal history of transient ischemic attack (TIA), and cerebral infarction without residual deficits; Z85.3 Personal history of malignant neoplasm of breast; Z92.21 Personal history of antineoplastic chemotherapy; Z88.1 Allergy status to other antibiotic agents
CPT/HCPCS: 70496; 70498; 70551; 80048; 80053; 80061; 82962; 84484; 85025; 85610; 85730; 92610; 93005; 93306; 97161; 97166; 99285; Q9967

== ENCOUNTER → 2024-05-28 12:19 | Outpatient (REF) | payer MEDICARE, BC, SELFPAY | LOC: WDC 12:19 | PROVIDERS: ATTENDING PHYSICIAN Family Medicine | DX: R92.8 Other abnormal and inconclusive findings on diagnostic imaging of breast (principal) | CPT/HCPCS: 88307; 77061; 77065 ==

== ENCOUNTER → 2024-06-02 09:09 | Outpatient (REF) | payer MEDICARE, BC, SELFPAY | LOC: WDC 09:09 | PROVIDERS: ATTENDING PHYSICIAN Family Medicine | DX: R92.8 Other abnormal and inconclusive findings on diagnostic imaging of breast (principal) | CPT/HCPCS: 76642 ==

== ENCOUNTER → 2024-07-05 08:31 | Outpatient (REF) | payer MEDICARE, BC, SELFPAY ==
[2024-07-05 10:06] LABS: ALT (SGPT) 23 U/L (0-35); AST (SGOT) 23 U/L (14-36); Alkaline Phosphatase 56 U/L (38-126); Direct Bilirubin 0.1 mg/dl (0.0-0.4); HDL Cholesterol 86 mg/dl; LDL Cholesterol, Calculated 27 mg/dl; Total Bilirubin 0.4 mg/dl (0.2-1.3); Total Cholesterol 130 mg/dl (50-199); Total Protein 6.5 g/dl (6.3-8.2); Triglyceride 86 mg/dl (10-149); Very Low Density Lipoprotein 17 mg/dl (0-30)
== END ==
LOC: REG 08:31
PROVIDERS: ATTENDING PHYSICIAN Internal Medicine Cardiovascular Disease; FAMILY PHYSICIAN Family Medicine
DX: E78.00 Pure hypercholesterolemia, unspecified (principal)
CPT/HCPCS: 36415; 80061; 80076

== ENCOUNTER → 2024-10-19 07:56 | Outpatient (REF) | payer MEDICARE, BC, SELFPAY ==
[2024-10-19 09:22] LABS: % Basophils 0.3 % (0-2); % Eosinophils 1.4 % (0-6); % Immature Granulocytes 0.4 % (0-0.5); % Lymphocytes 15.1 % (20.5-51.1); % Monocytes 8.3 % (1.7-9.3); % Neutrophils 74.5 % (42.2-75.2); Absolute Eosinophils 0.1 10^3/uL (0-0.7); Absolute Lymphocytes 1.2 10^3/uL (1.2-3.4); Absolute Monocytes 0.7 10^3/uL (0.1-0.6); Absolute Neutrophils 5.9 10^3/uL (1.4-6.5); Hematocrit 40.6 % (37.0-47.0); Mean Corpuscular Hgb 30.2 pg (27.0-31.0); Mean Corpuscular Volume 94.2 fL (81.0-99.0); Mean Platelet Volume 9.7 fL (7.4-10.4); Nucleated Red Blood Cells % 0 %; Platelet Count 292 10^3/uL (130-400); Red Blood Cell Count 4.31 10^6/uL (4.20-5.40); Red Cell Dist. Width 13.2 % (11.5-14.5); White Blood Cell Count 7.9 10^3/uL (4.8-10.8)
[2024-10-19 09:43] LABS: Microalbumin, Random Urine 2.8 mg/dl (0.6-1.7); Microalbumin/creatinine Ratio 10.3 mg/g
[2024-10-19 09:53] LABS: ALT (SGPT) 16 U/L (0-35); AST (SGOT) 20 U/L (14-36); Albumin 4.4 g/dl (3.5-5.0); Alkaline Phosphatase 71 U/L (38-126); Blood Urea Nitrogen 13 mg/dl (7-17); Calcium 9.6 mg/dl (8.4-10.2); Carbon Dioxide 25 mmol/L (22-30); Chloride 104 mmol/L (98-107); Glucose 134 mg/dl (70-99); HDL Cholesterol 84 mg/dl; LDL Cholesterol, Calculated 39 mg/dl; Potassium 4.5 mmol/L (3.5-5.1); Sodium 139 mmol/L (135-145); Total Bilirubin 0.6 mg/dl (0.2-1.3); Total Cholesterol 137 mg/dl (50-199); Total Protein 7.1 g/dl (6.3-8.2); Triglyceride 73 mg/dl (10-149); Very Low Density Lipoprotein 14 mg/dl (0-30); eGFR > 60.00
[2024-10-19 10:26] LABS: TSH Reflex To Free T4 2.39 uIU/ml (0.47-4.68)
[2024-10-19 10:45] LABS: Vitamin B12 304 pg/ml (239-931)
[2024-10-19 11:46] LABS: Glycohemoglobin (HgbA1c) 6.9 % (4.0-5.6)
== END ==
LOC: REG 07:56
PROVIDERS: ATTENDING PHYSICIAN Family Medicine
DX: E78.2 Mixed hyperlipidemia (principal); I10 Essential (primary) hypertension; E11.69 Type 2 diabetes mellitus with other specified complication; R79.9 Abnormal finding of blood chemistry, unspecified; Z01.89 Encounter for other specified special examinations; Z79.899 Other long term (current) drug therapy
CPT/HCPCS: 36415; 80053; 80061; 82043; 82570; 82607; 83036; 84443; 85025

== ENCOUNTER → 2024-11-12 10:35 | Outpatient (REF) | payer MEDICARE, BC, SELFPAY | LOC: WDC 10:35 | PROVIDERS: ATTENDING PHYSICIAN Family Medicine | DX: Z12.31 Encounter for screening mammogram for malignant neoplasm of breast (principal) | CPT/HCPCS: 77063; 77067 ==

== ENCOUNTER → 2025-02-16 07:40 | Outpatient (REF) | payer MEDICARE, BC, SELFPAY ==
[2025-02-16 08:58] LABS: ALT (SGPT) 14 U/L (0-35); AST (SGOT) 17 U/L (14-36); Albumin 4.4 g/dl (3.5-5.0); Alkaline Phosphatase 63 U/L (38-126); Blood Urea Nitrogen 11 mg/dl (7-17); Calcium 9.8 mg/dl (8.4-10.2); Carbon Dioxide 25 mmol/L (22-30); Chloride 111 mmol/L (98-107); Glucose 124 mg/dl (70-99); Potassium 4.6 mmol/L (3.5-5.1); Sodium 144 mmol/L (135-145); Total Bilirubin 0.7 mg/dl (0.2-1.3); Total Protein 7.1 g/dl (6.3-8.2); eGFR > 60.00
[2025-02-16 09:42] LABS: Vitamin B12 954 pg/ml (239-931)
[2025-02-16 10:09] LABS: Glycohemoglobin (HgbA1c) 6.9 % (4.0-5.6)
== END ==
LOC: REG 07:40
PROVIDERS: ATTENDING PHYSICIAN Family Medicine
DX: E11.69 Type 2 diabetes mellitus with other specified complication (principal); R79.9 Abnormal finding of blood chemistry, unspecified; Z01.89 Encounter for other specified special examinations; Z79.899 Other long term (current) drug therapy
CPT/HCPCS: 36415; 80053; 82607; 83036

== ENCOUNTER → 2025-05-20 08:02 | Outpatient (REF) | payer MEDICARE, BC, SELFPAY ==
[2025-05-20 09:03] LABS: ALT (SGPT) 15 U/L (0-35); AST (SGOT) 17 U/L (14-36); Albumin 4.3 g/dl (3.5-5.0); Alkaline Phosphatase 71 U/L (38-126); Blood Urea Nitrogen 15 mg/dl (7-17); Calcium 10.0 mg/dl (8.4-10.2); Carbon Dioxide 24 mmol/L (22-30); Chloride 108 mmol/L (98-107); Glucose 128 mg/dl (70-99); Potassium 4.4 mmol/L (3.5-5.1); Sodium 139 mmol/L (135-145); Total Protein 6.9 g/dl (6.3-8.2); eGFR > 60.00
[2025-05-20 10:11] LABS: Glycohemoglobin (HgbA1c) 6.9 % (4.0-5.6)
== END ==
LOC: REG 08:02
PROVIDERS: ATTENDING PHYSICIAN Family Medicine
DX: E11.69 Type 2 diabetes mellitus with other specified complication (principal); R79.9 Abnormal finding of blood chemistry, unspecified; Z01.89 Encounter for other specified special examinations; Z79.899 Other long term (current) drug therapy
CPT/HCPCS: 36415; 80053; 83036